=== PATIENT | female | born 1970 | race African-American/Black ===

== ENCOUNTER 2017-06-11 09:28 | Emergency (ER) | payer MEDICARE, MEDICAID ==
[~2017-06-11] VITALS: Ht 167.6 cm; Wt 70.0 kg
[~2017-06-11 09:28] MED LIST: ALPR0.5T PO; DEPO PROVERA; GABA-533 PO; OXYC10TA48 PO
[2017-06-11] MEDS ORDERED: ACETAMINOPHEN 325MG TABLET PO STA (13:25)
[2017-06-11 14:14] LABS: BASOPHILS % 0.5 % (0.0-2.0); EOSINOPHILS % 1.8 % (0.0-5.0); HEMATOCRIT. 37.1 % (36.0-48.0); HEMOGLOBIN. 11.9 g/dL (12.0-16.0); LYMPHOCYTES % 24.2 % (20.0-50.0); MEAN CORPUSCULAR HEMOGLOBIN 29.5 pg (28.0-32.0); MEAN CORPUSCULAR VOLUME 92.4 fL (81.0-99.0); MONOCYTES % 4.6 % (2.0-8.0); NEUTROPHILS % 68.9 % (40.0-76.0); PLATELET 333 x1000/uL (130-400); RED BLOOD CELL COUNT 4.02 mill/uL (4.2-5.4)
[2017-06-11] MEDS ORDERED: ONDANSETRON HCL 4MG/2ML VIAL IV STA (14:17)
[2017-06-11] MEDS ORDERED: KETOROLAC 30MG/ML VIAL IV STA (14:17)
[2017-06-11] MEDS ORDERED: SODIUM CHLORIDE 0.9% 1,000 ML IV ONE (14:17)
[2017-06-11 14:21] LABS: PROTHROMBIN TIME 10.6 sec (9.4-11.6)
[2017-06-11 14:33] LABS: CARBON DIOXIDE 26 mEq/L (21-32); CHLORIDE 107 mEq/L (98-107); TROPONIN I < 0.02 ng/mL (0.00-0.04)
[2017-06-11 15:15] LABS: CLARITY URINE CLOUDY (CLEAR); COLOR URINE YELLOW (YELLOW); KETONES URINE NEGATIVE (NEGATIVE); LEUKOCYTE ESTERASE URINE 1+ (NEGATIVE); NITRITE URINE NEGATIVE (NEGATIVE); OCCULT BLOOD URINE NEGATIVE (NEGATIVE); PH URINE 5.5 (4.5-8.0); PROTEIN URINE NEGATIVE (NEGATIVE); SPECIFIC GRAVITY URINE 1.021 (1.005-1.030); UROBILINOGEN URINE 0.2 E.U./dL (0.2-1.0)
[2017-06-11 15:20] VITALS: BP 143/75
[2017-06-11 15:30] LABS: *AMPHETAMINES SCREEN URINE NEGATIVE (NEGATIVE); *BARBITURATES SCREEN URINE NEGATIVE (NEGATIVE); *BENZODIAZEPINES SCREEN URINE NEGATIVE (NEGATIVE); CANNABINOID URINE SCREEN NEGATIVE (NEGATIVE); METHADONE URINE SCREEN NEGATIVE (NEGATIVE); OPIATES URINE SCREEN NEGATIVE (NEGATIVE); PHENCYCLIDINE URINE SCREEN NEGATIVE (NEGATIVE)
[2017-06-11 15:34] LABS: *COCAINE SCREEN URINE PRESUMTIVE POSITIVE (NEGATIVE)
== END 2017-06-11 17:20 | disposition home or self-care (01) ==
LOC: ER 09:48
DX: R07.89 Other chest pain (principal); N39.0 Urinary tract infection, site not specified; I44.7 Left bundle-branch block, unspecified; F14.10 Cocaine abuse, uncomplicated
CPT/HCPCS: 36415; 71010; 80053; 80305; 81001; 81025; 84484; 85025; 85610; 93005; 96361; 96374; 96375; 99285; J1885; J2405; J7030

== ENCOUNTER 2017-09-13 10:33 | Emergency (ER) | payer MEDICARE, MEDICAID ==
[~2017-09-13] VITALS: Ht 165.1 cm; Wt 73.0 kg
[2017-09-13 10:43] VITALS: BP 146/86
== END 2017-09-13 19:00 | disposition left against medical advice (07) ==
LOC: ER 10:33
DX: R07.9 Chest pain, unspecified (principal); Z53.21 Procedure and treatment not carried out due to patient leaving prior to being seen by health care provider

== ENCOUNTER 2017-12-28 11:08 | Emergency (ER) | payer MEDICARE, MEDICAID ==
[~2017-12-28] VITALS: Ht 162.6 cm; Wt 90.0 kg
[2017-12-28] MEDS ORDERED: TETRACAINE 0.5% OPHTH DROPS 4ML LEFTEYE ONE (12:00)
[2017-12-28] MEDS ORDERED: FLUORESCEIN SODIUM 1MG/STRIP OP ONE (12:00)
[2017-12-28] MEDS ORDERED: ACETAMINOPHEN 325MG TABLET PO ONE (12:15)
[2017-12-28] MEDS ORDERED: IBUPROFEN 600MG TABLET PO ONE (17:15)
[2017-12-28] MEDS ORDERED: TRAMADOL 50MG TABLET PO ONE (18:00)
[2017-12-28 19:50] VITALS: BP 134/84
== END 2017-12-28 20:50 | disposition home or self-care (01) ==
LOC: ER 11:09
DX: T54.93XA Toxic effect of unspecified corrosive substance, assault, initial encounter (principal); H10.212 Acute toxic conjunctivitis, left eye; H53.8 Other visual disturbances; Y08.89XA Assault by other specified means, initial encounter; Y93.89 Activity, other specified; Y92.89 Other specified places as the place of occurrence of the external cause
CPT/HCPCS: 99284